=== PATIENT | male | born 1960 | race Caucasian/White ===

== ENCOUNTER 2018-07-25 12:04 | Day surgery (SDC) | payer OTHER ==
[2018-07-25] MEDS ORDERED: PROPOFOL 60 ML (15:03)
[2018-07-25] MEDS ORDERED: LIDOCAINE 2% (SDV) 5 ML INJ (15:03)
== END 2018-07-25 16:12 | disposition home or self-care (01) ==
LOC: GIL 12:04
DX: K92.1 Melena (principal); K29.70 Gastritis, unspecified, without bleeding; K57.30 Diverticulosis of large intestine without perforation or abscess without bleeding; K64.8 Other hemorrhoids; I10 Essential (primary) hypertension; E78.5 Hyperlipidemia, unspecified; E03.9 Hypothyroidism, unspecified
CPT/HCPCS: 43239; 88305